=== PATIENT | female | born 1960 | race Caucasian/White ===

== ENCOUNTER 2017-04-28 09:10 | Emergency (ER) | payer OTHER ==
[~2017-04-28] VITALS: Ht 165.1 cm; Wt 49.0 kg
[2017-04-28 10:20] LABS: POINT-OF-CARE METER ID UU13113702
[2017-04-28 10:25] LABS: HEMATOCRIT 42.9 % (36.0-46.0); MCH 30.2 PG (29.0-34.0); MCHC 33.3 G/DL (30.0-36.0); MCV 90.7 FL (83-99); MEAN PLAT.VOLUME 9.7 uM^3 (9.5-12.4); PLATELET COUNT 220 K/uL (156-360); RED BLOOD COUNT 4.73 M/uL (3.80-5.20); WHITE BLOOD COUNT 4.6 K/uL (4.1-10.2)
[2017-04-28 10:33] LABS: CHLORIDE 107 mEq/L (99-109); POTASSIUM 3.8 mEq/L (3.7-5.4); SODIUM 141 mEq/L (136-147)
[2017-04-28 10:35] LABS: GLUCOSE 91 mg/dL (70-99)
[2017-04-28 10:36] LABS: ANION GAP 12 MEQ/L (2-14)
[2017-04-28 10:39] LABS: GFR ESTIMATE (CALCULATED) > 59 mL/min/
[2017-04-28 10:40] LABS: UREA NITROGEN (BUN) 16 mg/dL (9-23)
[2017-04-28 10:41] LABS: CREATINE KINASE 265 IU/L (1-294); TOTAL CK 265 IU/L (1-294)
[2017-04-28 10:46] LABS: TROP-I INTERPRETATION NEGATIVE; TROPONIN-I < 0.01 ng/mL (0.0-0.30)
[2017-04-28 10:48] LABS: CK-MB 3.1 ng/mL (0.0-4.9)
[2017-04-28 12:12] LABS: TROP-I INTERPRETATION NEGATIVE; TROPONIN-I < 0.01 ng/mL (0.0-0.30)
[2017-04-28 12:44] VITALS: BP 127/72
== END 2017-04-28 12:58 | disposition home or self-care (01) ==
LOC: EME 09:10
PROVIDERS: Emergency Medicine
DX: R07.89 Other chest pain (principal); R68.83 Chills (without fever); R53.1 Weakness; Z82.49 Family history of ischemic heart disease and other diseases of the circulatory system
CPT/HCPCS: 71020; 80048; 82550; 82553; 82948; 83880; 84484; 85027; 93005; 99281; 99284; J7030